=== PATIENT | male | born 1955 | race Caucasian/White ===

== ENCOUNTER 2022-03-16 13:36 | Outpatient (CLI) | payer MEDICARE | END 2022-03-16 13:37 | disposition home or self-care (01) | LOC: SCSRAD 13:36 | PROVIDERS: ATTEND Family Medicine | DX: L03.116 Cellulitis of left lower limb (principal) ==

== ENCOUNTER 2022-04-16 14:11 | Inpatient (IN) | payer MEDICARE ==
[2022-04-16] MEDS ORDERED: Piperacillin/Tazobactam 3.375 GM VIAL ONE (14:56)
[2022-04-16] MEDS ORDERED: Vancomycin 1 GM/200 ML BAG ONE (14:56)
[2022-04-16 15:03] LABS: Hemoglobin 14.1 g/dL (14.0-18.0); Mean Corpuscular HGB CONC 34.3 g/dL (32.0-36.0); Mean Corpuscular Hemoglobin 32.5 pg (27.0-31.0); Mean Corpuscular Volume 94.7 fL (78.0-98.0); Mean Platelet Volume 6.8 fL (7.4-10.4); Platelet Count 127 thou/uL (130-400); RBC Distribution Width 15.6 % (11.5-14.5); Red Blood Cell (RBC) Count 4.34 mill/uL (4.70-6.10); White Blood Cell (WBC) Count 3.2 thou/uL (4.8-10.8)
[2022-04-16 15:18] LABS: Band 2 % (5-11); Eosinophils 5 % (0-10); Lymphocytes 30 % (21-51); MDiff Complete? YES; Monocytes 16 % (0-10); Neutrophil 26 % (42-75); Ovalocytes SLIGHT = 2-5 cells (100X) (0-1/hpf); Platelet Morphology Comment Appears Decreased; Polychromasia SLIGHT = 2-3 cells (100X) (0-2/hpf); Reactive Lymphocytes 19 % (0-10)
[2022-04-16 15:25] LABS: ALT (SGPT) 33 U/L (8-55); AST (SGOT) 29 U/L (5-34); Albumin 3.5 g/dL (3.4-4.8); Alkaline Phosphatase 92 U/L (40-110); Anion Gap 16 mmol/L (10-20); BUN (Urea Nitrogen) 20 mg/dL (8.4-25.7); Bilirubin, Total 4.6 mg/dL (0.2-1.2); Calc. Creatinine Clearance 0 mL/min (70-130); Calcium 8.8 mg/dL (7.8-10.44); Carbon Dioxide 23 mmol/L (23-31); Chloride 100 mmol/L (98-107); Globulin 2.5 g/dL (2.4-3.5); Glucose 121 mg/dL (80-115); Sodium 136 mmol/L (136-145)
[2022-04-16 15:48] LABS: CKMB 0.7 ng/mL (0-6.6)
[2022-04-16] MEDS ORDERED: Aspirin 325 MG TAB ONE (16:35)
[2022-04-16] MEDS ORDERED: Potassium Chloride 20 MEQ TAB ONE (16:35)
[2022-04-16] MEDS ORDERED: Azithromycin 500 MG VIAL ONE (16:37)
[2022-04-16] MEDS ORDERED: Ondansetron PF 4 MG/2 ML Vial IVP PRN (17:55)
[2022-04-16] MEDS ORDERED: Acetaminophen 325 MG TAB PO PRN (17:55)
[2022-04-16] MEDS ORDERED: Acetaminophen 650 MG Suppository PR PRN (17:55)
[2022-04-16] MEDS ORDERED: Ondansetron ODT 4 MG TAB PO PRN (17:55)
[2022-04-16] MEDS ORDERED: Vancomycin 1 GM in Premix Bag 1 BAG IVPB SCH ×2 (18:00→21:45)
[2022-04-16 18:26] LABS: Bacteria/HPF 1+ HPF (None Seen); Bilirubin Negative (Negative); Blood, Urine Trace (Negative); Clarity Turbid (Clear); Glucose, Urine (Dipstick) Normal (Negative); Ketone, Urine Negative (Negative); Leukocyte Negative Leu/uL (Negative); Nitrite Negative (Negative); Protein, Urine (Dipstick) 50 mg/dL (Neg-Trace); RBC/HPF 0-3 HPF (0-3); Specific Gravity, Urine 1.011 (1.002-1.036); Squamous Epithelial 0-3 HPF (0-3); pH, Urine 5.5 (5.0-9.0)
[2022-04-16 20:57] VITALS: BMI 32.1
[2022-04-16] MEDS: Heparin 5,000 UNITS/ML VIAL SC SCH (21:00)
[2022-04-16] MEDS: Sodium Chloride 0.9% 1,000 ML IV SCH (21:01)
[2022-04-16] MEDS ORDERED: Cefepime 2 GM in Sodium Chloride 0.9% 100 ML IVPB SCH (21:15)
[2022-04-17 01:34] LABS: Legionella Urinary Ag Negative (Negative)
[2022-04-17 06:30] LABS: Anion Gap 14 mmol/L (10-20); BUN (Urea Nitrogen) 19 mg/dL (8.4-25.7); Calc. Creatinine Clearance 61 mL/min (70-130); Calcium 9.4 mg/dL (7.8-10.44); Carbon Dioxide 21 mmol/L (23-31); Chloride 104 mmol/L (98-107); Glucose 128 mg/dL (80-115); Potassium 3.6 mmol/L (3.5-5.1); Sodium 135 mmol/L (136-145)
[2022-04-17 06:49] LABS: Band 7 % (5-11); Eosinophils 6 % (0-10); Hemoglobin 12.6 g/dL (14.0-18.0); Lymphocytes 50 % (21-51); MDiff Complete? YES; Mean Corpuscular HGB CONC 33.9 g/dL (32.0-36.0); Mean Corpuscular Hemoglobin 32.3 pg (27.0-31.0); Mean Corpuscular Volume 95.4 fL (78.0-98.0); Mean Platelet Volume 6.8 fL (7.4-10.4); Monocytes 7 % (0-10); Neutrophil 21 % (42-75); Platelet Count 87 thou/uL (130-400); Platelet Morphology Comment Appears Decreased; RBC Distribution Width 15.5 % (11.5-14.5); Reactive Lymphocytes 8 % (0-10); Red Blood Cell (RBC) Count 3.91 mill/uL (4.70-6.10); White Blood Cell (WBC) Count 1.8 thou/uL (4.8-10.8)
[2022-04-17] MEDS: Sodium Chloride 0.9% 1,000 ML IV SCH ×3 (08:10→18:25)
[2022-04-17 08:16] LABS: Strep pneumo Urine Ag NEGATIVE (NEGATIVE)
[2022-04-17] MEDS ORDERED: Adenosine 6 MG/2 ML VIAL ONE ×3 (09:24→09:47)
[2022-04-17] MEDS ORDERED: Metoprolol Tartrate 5 MG/5 ML VIAL ONE (09:29)
[2022-04-17] MEDS ORDERED: Magnesium 5 GM/10 ML Abboject SYRINGE ONE (09:49)
[2022-04-17] MEDS: Diltiazem HCl 125 MG in Premix Bag 1 BAG IVPB SCH ×2 (10:00→18:25)
[2022-04-17] MEDS ORDERED: Digoxin 0.5 MG/2 ML AMP ONE (10:00)
[2022-04-17 10:38] LABS: Magnesium 1.6 mg/dL (1.6-2.6)
[2022-04-17] MEDS ORDERED: Digoxin 0.5 MG/2 ML AMP SLOW IVP SCH (10:45)
[2022-04-17] MEDS ORDERED: Adenosine 6 MG/2 ML VIAL IVP SCH ×2 (10:45→11:00)
[2022-04-17] MEDS ORDERED: Magnesium 2 GM/50 ML(in water) 2 GM in Premix Bag 1 BAG IVPB SCH (11:00)
[2022-04-17] MEDS ORDERED: Lactated Ringer's 500 ML IV SCH (11:00)
[2022-04-17] MEDS ORDERED: Propranolol HCl LA 80 MG CAP PO SCH (11:15)
[2022-04-17] MEDS ORDERED: Propranolol HCl LA 60 MG CAP PO SCH (11:30)
[2022-04-17] MEDS ORDERED: Metoprolol Tartrate 5 MG/5 ML VIAL IVP SCH (11:30)
[2022-04-17] MEDS: Dexamethasone 1 MG TAB PO SCH (13:35)
[2022-04-17] MEDS: Heparin 5,000 UNITS/ML VIAL SC SCH ×2 (13:35→20:43)
[2022-04-17] MEDS ORDERED: Azithromycin 500 MG in Sodium Chloride 0.9% 250 ML 250 ML IVPB SCH (17:00)
[2022-04-17] MEDS ORDERED: Cefepime 2 GM in Sodium Chloride 0.9% 100 ML IVPB SCH (21:00)
[2022-04-17] MEDS ORDERED: Vancomycin 1 GM in Premix Bag 1 BAG IVPB SCH (22:00)
[2022-04-18 03:48] LABS: Anion Gap 14 mmol/L (10-20); BUN (Urea Nitrogen) 18 mg/dL (8.4-25.7); Calc. Creatinine Clearance 74 mL/min (70-130); Calcium 9.6 mg/dL (7.8-10.44); Carbon Dioxide 18 mmol/L (23-31); Chloride 106 mmol/L (98-107); Glucose 163 mg/dL (80-115); Potassium 4.5 mmol/L (3.5-5.1); Sodium 133 mmol/L (136-145)
[2022-04-18 04:53] LABS: Hemoglobin 11.7 g/dL (14.0-18.0); MDiff Complete? YES; Mean Corpuscular HGB CONC 29.1 g/dL (32.0-36.0); Mean Corpuscular Hemoglobin 27.6 pg (27.0-31.0); Mean Corpuscular Volume 94.8 fL (78.0-98.0); Mean Platelet Volume 8.6 fL (7.4-10.4); Platelet Count 61 thou/uL (130-400); RBC Distribution Width 15.2 % (11.5-14.5); Red Blood Cell (RBC) Count 4.24 mill/uL (4.70-6.10); White Blood Cell (WBC) Count 1.3 thou/uL (4.8-10.8)
[2022-04-18 04:54] LABS: Anisocytosis SLIGHT = 6-15 cells (100X) (0-5/hpf); Band 4 % (5-11); Eosinophils 1 % (0-10); Lymphocytes 44 % (21-51); Monocytes 10 % (0-10); Neutrophil 41 % (42-75); Platelet Morphology Comment Appears Decreased
[2022-04-18] MEDS: Levothyroxine Sodium 125 MCG TAB PO SCH (05:20)
[2022-04-18] MEDS ORDERED: ADENOSINE 60 MG/20 ML VIAL IVP SCH (09:00)
[2022-04-18] MEDS ORDERED: Adenosine 6 MG/2 ML VIAL IVP SCH (09:00)
[2022-04-18] MEDS: Dexamethasone 1 MG TAB PO SCH (11:35)
[2022-04-18] MEDS: Heparin 5,000 UNITS/ML VIAL SC SCH ×2 (11:35→21:24)
[2022-04-18] MEDS: Propranolol HCl LA 60 MG CAP PO SCH (11:35)
[2022-04-18] MEDS: Sodium Chloride 0.9% 1,000 ML IV SCH ×2 (11:35→23:00)
[2022-04-18] MEDS ORDERED: Cefepime 2 GM in Sodium Chloride 0.9% 100 ML IVPB SCH (12:00)
[2022-04-18] MEDS: Vancomycin 25 MG/ML Oral SOLN PO SCH (18:11)
[2022-04-18] MEDS: valACYclovir 500 MG TAB PO SCH (21:25)
[2022-04-19] MEDS: Vancomycin 25 MG/ML Oral SOLN PO SCH ×5 (00:50→20:54)
[2022-04-19 03:52] LABS: Hemoglobin 12.3 g/dL (14.0-18.0); Mean Corpuscular Hemoglobin 33.7 pg (27.0-31.0); Mean Corpuscular Volume 93.7 fL (78.0-98.0); Mean Platelet Volume 7.9 fL (7.4-10.4); Platelet Count 89 thou/uL (130-400); RBC Distribution Width 14.7 % (11.5-14.5); Red Blood Cell (RBC) Count 3.66 mill/uL (4.70-6.10); White Blood Cell (WBC) Count 1.5 thou/uL (4.8-10.8)
[2022-04-19 04:33] LABS: Band 2 % (5-11); Eosinophils 1 % (0-10); Lymphocytes 36 % (21-51); MDiff Complete? YES; Monocytes 14 % (0-10); Neutrophil 47 % (42-75); Platelet Morphology Comment Appears Decreased
[2022-04-19 05:35] LABS: Anion Gap 14 mmol/L (10-20); BUN (Urea Nitrogen) 19 mg/dL (8.4-25.7); Calc. Creatinine Clearance 88 mL/min (70-130); Calcium 9.7 mg/dL (7.8-10.44); Carbon Dioxide 19 mmol/L (23-31); Chloride 106 mmol/L (98-107); Glucose 179 mg/dL (80-115); Potassium 4.5 mmol/L (3.5-5.1); Sodium 134 mmol/L (136-145)
[2022-04-19] MEDS: Sodium Chloride 0.9% 1,000 ML IV SCH ×2 (06:04→17:00)
[2022-04-19] MEDS: Levothyroxine Sodium 125 MCG TAB PO SCH (06:04)
[2022-04-19] MEDS: Heparin 5,000 UNITS/ML VIAL SC SCH ×2 (10:00→20:54)
[2022-04-19] MEDS: valACYclovir 500 MG TAB PO SCH ×2 (10:02→20:54)
[2022-04-19] MEDS: Dexamethasone 1 MG TAB PO SCH (10:02)
[2022-04-19] MEDS: Cholecalciferol 1,000 UNITS (25 MCG) TAB PO SCH (10:02)
[2022-04-19] MEDS: Propranolol HCl LA 60 MG CAP PO SCH (10:02)
[2022-04-20] MEDS: Vancomycin 25 MG/ML Oral SOLN PO SCH ×4 (03:16→21:51)
[2022-04-20 04:49] LABS: Anion Gap 14 mmol/L (10-20); BUN (Urea Nitrogen) 21 mg/dL (8.4-25.7); Calc. Creatinine Clearance 84 mL/min (70-130); Calcium 9.9 mg/dL (7.8-10.44); Carbon Dioxide 25 mmol/L (23-31); Chloride 104 mmol/L (98-107); Glucose 151 mg/dL (80-115); Potassium 4.6 mmol/L (3.5-5.1); Sodium 138 mmol/L (136-145)
[2022-04-20 05:09] LABS: Band 4 % (5-11); Eosinophils 3 % (0-10); Hemoglobin 11.6 g/dL (14.0-18.0); Lymphocytes 55 % (21-51); MDiff Complete? YES; Mean Corpuscular HGB CONC 33.8 g/dL (32.0-36.0); Mean Corpuscular Hemoglobin 31.8 pg (27.0-31.0); Mean Corpuscular Volume 94.2 fL (78.0-98.0); Mean Platelet Volume 7.1 fL (7.4-10.4); Monocytes 16 % (0-10); Neutrophil 22 % (42-75); Platelet Count 126 thou/uL (130-400); RBC Distribution Width 14.9 % (11.5-14.5); Red Blood Cell (RBC) Count 3.65 mill/uL (4.70-6.10); White Blood Cell (WBC) Count 1.5 thou/uL (4.8-10.8)
[2022-04-20] MEDS: Levothyroxine Sodium 125 MCG TAB PO SCH (06:00)
[2022-04-20] MEDS: Dexamethasone 1 MG TAB PO SCH (10:04)
[2022-04-20] MEDS: valACYclovir 500 MG TAB PO SCH ×2 (10:04→21:51)
[2022-04-20] MEDS: Cholecalciferol 1,000 UNITS (25 MCG) TAB PO SCH (10:04)
[2022-04-20] MEDS: Amlodipine 5 MG TAB PO SCH (10:04)
[2022-04-20] MEDS: Heparin 5,000 UNITS/ML VIAL SC SCH ×2 (10:05→21:52)
[2022-04-20] MEDS: Propranolol HCl LA 60 MG CAP PO SCH (10:05)
[2022-04-21] MEDS: Vancomycin 25 MG/ML Oral SOLN PO SCH ×4 (02:28→21:40)
[2022-04-21 04:28] LABS: Hemoglobin 12.1 g/dL (14.0-18.0); Mean Corpuscular HGB CONC 34.2 g/dL (32.0-36.0); Mean Corpuscular Volume 93.8 fL (78.0-98.0); Mean Platelet Volume 6.7 fL (7.4-10.4); Platelet Count 143 thou/uL (130-400); RBC Distribution Width 14.9 % (11.5-14.5); Red Blood Cell (RBC) Count 3.77 mill/uL (4.70-6.10); White Blood Cell (WBC) Count 1.9 thou/uL (4.8-10.8)
[2022-04-21 04:55] LABS: Band 10 % (5-11); Eosinophils 1 % (0-10); Lymphocytes 49 % (21-51); MDiff Complete? YES; Metamyelocyte 1 % (0-0); Monocytes 13 % (0-10); Myelocyte 1 % (0-0); Neutrophil 24 % (42-75); Nucleated RBC 4 % (0)
[2022-04-21] MEDS: Levothyroxine Sodium 125 MCG TAB PO SCH (05:21)
[2022-04-21 05:46] LABS: Anion Gap 13 mmol/L (10-20); Calcium 9.9 mg/dL (7.8-10.44); Carbon Dioxide 28 mmol/L (23-31); Chloride 101 mmol/L (98-107); Glucose 132 mg/dL (80-115); Potassium 4.5 mmol/L (3.5-5.1); Sodium 137 mmol/L (136-145)
[2022-04-21 05:47] LABS: Calc. Creatinine Clearance 74 mL/min (70-130)
[2022-04-21 07:07] LABS: BUN (Urea Nitrogen) 25 mg/dL (8.4-25.7)
[2022-04-21] MEDS: Cholecalciferol 1,000 UNITS (25 MCG) TAB PO SCH (08:34)
[2022-04-21] MEDS: Dexamethasone 1 MG TAB PO SCH (08:35)
[2022-04-21] MEDS: Amlodipine 5 MG TAB PO SCH (08:35)
[2022-04-21] MEDS: valACYclovir 500 MG TAB PO SCH ×2 (08:35→21:41)
[2022-04-21] MEDS: Propranolol HCl LA 60 MG CAP PO SCH (10:11)
[2022-04-21] MEDS ORDERED: Propranolol HCl LA 60 MG CAP PO SCH (11:00)
[2022-04-21] MEDS: Heparin 5,000 UNITS/ML VIAL SC SCH ×2 (12:09→21:57)
[2022-04-22] MEDS: Vancomycin 25 MG/ML Oral SOLN PO SCH ×3 (02:45→15:12)
[2022-04-22] MEDS: Levothyroxine Sodium 125 MCG TAB PO SCH (05:44)
[2022-04-22] MEDS ORDERED: Regadenoson 0.4 MG/5 ML SYRINGE ONE (07:42)
[2022-04-22] MEDS ORDERED: Propranolol HCl LA 60 MG CAP PO SCH (09:00)
[2022-04-22] MEDS ORDERED: Propranolol HCl LA 80 MG CAP PO SCH (09:00)
[2022-04-22] MEDS: valACYclovir 500 MG TAB PO SCH (09:19)
[2022-04-22] MEDS: Amlodipine 5 MG TAB PO SCH (09:20)
[2022-04-22] MEDS: Heparin 5,000 UNITS/ML VIAL SC SCH (10:25)
[2022-04-22] MEDS ORDERED: Saccharomyces boulardii 250 MG CAP PO SCH (12:00)
[2022-04-22] MEDS: Dexamethasone 1 MG TAB PO SCH (13:09)
[2022-04-22] MEDS: Cholecalciferol 1,000 UNITS (25 MCG) TAB PO SCH (13:10)
[2022-04-22 16:22] VITALS: BP 122/77; TEMP 98
== END 2022-04-22 18:00 | disposition home or self-care (01) | DRG 871 ==
LOC: ERS 14:11 → T4-B 16:02 → IMCU/EMU 04-17 09:56 → 2NO 04-19 16:22
PROVIDERS: ADMIT Internal Medicine; ATTEND Internal Medicine
DX: A41.4 Sepsis due to anaerobes (principal); J18.9 Pneumonia, unspecified organism; J96.01 Acute respiratory failure with hypoxia; Z94.81 Bone marrow transplant status; N17.9 Acute kidney failure, unspecified; C91.11 Chronic lymphocytic leukemia of B-cell type in remission; I47.1 Supraventricular tachycardia; A04.72 Enterocolitis due to Clostridium difficile, not specified as recurrent; D89.811 Chronic graft-versus-host disease; Z20.822 Contact with and (suspected) exposure to COVID-19; E03.9 Hypothyroidism, unspecified; E87.6 Hypokalemia; I12.9 Hypertensive chronic kidney disease with stage 1 through stage 4 chronic kidney disease, or unspecified chronic kidney disease; N18.9 Chronic kidney disease, unspecified; D70.9 Neutropenia, unspecified; R50.81 Fever presenting with conditions classified elsewhere; R65.20 Severe sepsis without septic shock; T38.0X5A Adverse effect of glucocorticoids and synthetic analogues, initial encounter; R73.9 Hyperglycemia, unspecified; Z79.899 Other long term (current) drug therapy; Z79.890 Hormone replacement therapy
CPT/HCPCS: 36415; 36416; 71045; 78452; 80048; 80053; 80202; 81003; 81015; 82553; 83605; 83630; 83735; 83880; 84145; 84484; 85025; 87040; 87324; 87449; 87493; 87899; 93005; 93010; 93017; 93306; 96361; 96365; 96367; A9500; J0153; J0456; J0692; J1160; J2543; J2785; J3370; J3475; J3490; J7050; J7120; J8540; U0003; U0005